=== PATIENT | male | born 1960 ===

== ENCOUNTER 2017-08-29 06:06 | Day surgery (SDC) | payer BC ==
[2017-08-27 14:13] VITALS: BMI 28.3
[2017-08-29 06:45] VITALS: TEMP 97.7
[2017-08-29] MEDS ORDERED: ONDANSETRON 4 MG/2 ML VIAL ONE (07:30)
[2017-08-29] MEDS ORDERED: MIDAZOLAM HCL 2 MG/2 ML SINGLE DOSE VIAL ONE ×2 (07:30→08:00)
[2017-08-29] MEDS ORDERED: DEXAMETHASONE SOD PHOSPHATE 4 MG/1 ML VIAL ONE (07:30)
[2017-08-29] MEDS ORDERED: SUCCINYLCHOLINE CHLORIDE 200 MG/10 ML VIAL ONE (07:32)
[2017-08-29] MEDS ORDERED: ePHEDrine SULFATE 50 MG/1 ML AMPULE ONE (07:32)
[2017-08-29] MEDS ORDERED: PROPOFOL 20 ML ONE ×6 (07:32)
[2017-08-29] MEDS ORDERED: oxyCODONE HCL 5 MG TABLET PO PRN ×2 (09:57)
[2017-08-29] MEDS ORDERED: ONDANSETRON 4 MG/2 ML VIAL IVPUSH PRN (09:57)
[2017-08-29] MEDS ORDERED: LACTATED RINGERS SOLUTION 1,000 ML IV SCH (10:00)
--- NOTE | 2017-08-29 10:03 | OP ---
DATE OF OPERATION: 08/29/2017 PREOPERATIVE DIAGNOSIS: Retained hardware, right ankle. POSTOPERATIVE DIAGNOSIS: Retained hardware, right ankle. PROCEDURE: Right ankle removal of fibular plate. SURGEON: Romaine Carcamo MD ANESTHESIA: Spinal. POSTOPERATIVE CONDITION: Stable. COMPLICATIONS: None. SPECIMENS: Fibular plate x1. INDICATIONS: This is a pleasant gentleman who underwent ORIF of a trimalleolar ankle fracture. He continues to experience some lateral ankle pain about the peroneals, and given the location of his plate, suggest the option of removal of hardware. After reviewing the risks, benefits, and alternatives, patient elected to proceed. Risks discussed included bleeding, infection, neurovascular injury, need for further surgery, continued postoperative pain or stiffness, fracture, permanently retained hardware. We discussed that we were only going to remove the lateral hardware as this was the area where he was having pain, and removal of additional hardware would offer additional risk without any particular benefit if he had no pain there. We discussed medical risks such as heart attack, stroke, DVT, PE, and . Patient voiced understanding. He elected to proceed. DESCRIPTION OF PROCEDURE: The patient was brought to the operating room where spinal anesthesia was administered. Patient was placed into the prone position, carefully padded all bony prominences. The right lower extremity was then prepped and draped in the usual sterile fashion. A preoperative dose of antibiotics was given, and the usual time-out procedure was performed. At this point, the previous incision was used and incised with a 15 blade. Blunt spreading was used to expose the fascia over the peroneal tendons. This was next split in line. The tendons were now mobilized medially exposing the posterior aspect of the fibula. The soft tissue over the fibular plate was now incised using a 15 blade and then elevated off using a periosteal elevator. The fibular plate was now removed from the posterior aspect of the fibula. Utilizing a curette as well as a rongeur, any bony roughness from under the plate was debrided. This created a smooth surface on the posterior aspect of the fibula. The cranial tendons were inspected and no tearing was seen either in the longus or the brevis. The area was now irrigated. The peroneal retinaculum was repaired using 4-0 Vicryl. The subcutaneous tissue was approximated using 4-0 Vicryl. The skin was closed using 3-0 nylon. Sterile dressings were placed. The tourniquet was let down after 40 minutes. Patient and extubated. The patient was transferred to the recovery room in stable condition. Sarai [id number]
[2017-08-29 12:16] VITALS: PULSE 74
[2017-08-29] MEDS ORDERED: oxyCODONE HCL 5 MG TABLET ONE (12:58)
[2017-08-29 14:22] VITALS: BP 116/70
--- NOTE | 2017-09-05 10:54 | PATH ---
Surgical Pathology Report Patient Name: ANA M JADE [facility]. Rec. #: [id number] /Age/Gender: 1960 (Age: 56) / M Account: [id number] Location: [facility] Taken: 08/29/2017 Received: 08/30/2017 Reported: 09/05/2017 Physicians: Romaine Carcamo M.D. Specimen(s) Received HARDWARE RIGHT ANKLE Clinical History Right ankle ORIF Final Diagnosis ORTHOPEDIC HARDWARE, RIGHT ANKLE, REMOVAL: METALLIC PLATE AND SCREWS CONSISTENT WITH ORTHOPEDIC HARDWARE (GROSS ONLY). Electronically Signed Irineo Sahu M.D. Gross Description Received fresh labeled "right ankle plate and screws," is a 13.0 x 1.0 x 0.3 cm ramirez metallic plate. Also received within the same container are 10 metallic screws ranging from 1.1-2.1 cm in length. No soft tissue is present. No sections are submitted, gross only. 08/30/2017 saudi08/30/2017
== END 2017-08-29 13:55 | disposition home or self-care (01) ==
LOC: FASU 06:06
PROVIDERS: ATTEND Orthopaedic Surgery Sports Medicine
PROC: 0SPF04Z Removal of Internal Fixation Device from Right Ankle Joint, Open Approach (ICD-10-PCS; principal; 2017-08-29 07:55)
DX: Z47.2 Encounter for removal of internal fixation device (principal)
CPT/HCPCS: 88300-TC; 94760